=== PATIENT | male | born 1950 | race Caucasian/White ===

== ENCOUNTER 2021-07-20 17:40 | Emergency (ER) | payer OTHER ==
[~2021-07-20] VITALS: Ht 182.9 cm; Wt 113.4 kg
--- NOTE | ~2021-07-20 | EMS ---
[address] [address] EMS Patient Care Report Name: LACY NOONAN Room #: DEP ROSALIA Gonzalez#: [id number] Admission: 07/20/21 Attend Phys: Discharge: 07/20/21 Date of : 48 Report #: [id number] THIS REPORT FOR: //name// Report Transmitted: 07/23/2021 09:54 EMS Care Summary [place], [place]/[facility] Incident [phone] @ 07/20/2021 17:07 Incident Location [address] [place] [address] 27 Patient LACY NOONAN Male, 71 Years 1950 Patient Address [address] [place] [address] Patient History None Reported, Patient Allergies No known allergies, Patient Medications None Reported, Chief Complaint covid shot messed up my insides Disposition Transported No Lights/[place] Dispatch Reason Sick Person Transported To [facility] Narrative arrived to find patient meeting the ambulance stating that the covid shot two months ago messed up his insides. patient and all belongings taken to [facility] and left in room with nursing staff at bedside. [address] [address] EMS Patient Care Report Name: LACY NOONAN Room #: DEP ER Roseline.#: [id number] Admission: 07/20/21 Attend Phys: Discharge: 07/20/21 Date of : 48 Report #: [id number] Initial Vitals @17:22P: 82,R: 20,BP: 128/68,Pain: 0/10,GCS: 15,SpO2: 98,Revised Trauma: 12, @17:34P: 80,R: 20,BP: 130/70,Pain: 0/10,GCS: 15,SpO2: 98,Revised Trauma: 12, Assessments @17:22MENTAL:No Abnormalities,SKIN:No Abnormalities,HEENT:Head/Face: No Abnormalities,Eyes: No Abnormalities,Neck/Airway: No Abnormalities,LUNG SOUNDS:General: No Abnormalities,Left Upper: No Abnormalities,Right Upper: No Abnormalities,Left Lower: No Abnormalities,Right Lower: No Abnormalities,ABDOMEN:General: No Abnormalities,Left Upper: No Abnormalities,Right Upper: No Abnormalities,Left Lower: No Abnormalities,Right Lower: No Abnormalities,PELVIS//GI:No Abnormalities,EXTREMITIES:Right Leg: Edema,Left Leg: Edema,Left Arm: No Abnormalities,Right Arm: No Abnormalities,PULSE:NEURO:No Abnormalities, Impression Abdominal Pain Procedures @17:22 BLS Assessment Response: Unchanged Timeline 17:07,Call Received 17:07,Dispatch Notified 17:07,Dispatched 17:08,En Route 17:21,On Scene 17:22,At Patient 17:22,BLS Assessment,Response: Unchanged 17:22,BP: 128/68 M,PULSE: 82,RR: 20 R,SPO2: 98 Ox,ETCO2: ,BG: ,PAIN: 0,GCS: 15, 17:25,Depart Scene 17:34,BP: 130/70 M,PULSE: 80,RR: 20 R,SPO2: 98 Ox,ETCO2: ,BG: ,PAIN: 0,GCS: 15, 17:36,At Destination 17:49,Call Closed Disclaimer v1.1 Copyright 2021 [employer] This EMS Care Summary contains data elements from the applicable legal record (which may be displayed differently). It is designed to provide pertinent information for the following purposes: continuity of care, clinical quality, and state data reporting. The complete legal record is available to ED staff and administrators of the receiving hospital in [employer]'s Patient Tracker. All data is provided "as is."
[2021-07-20] MEDS ORDERED: LIPITOR40 MG PO (17:56)
[2021-07-20] MEDS ORDERED: JANTOVEN5 MG PO (18:00)
[2021-07-20] MEDS ORDERED: GLIPIZIDE 10 MG10 MG PO (18:01)
[2021-07-20] MEDS ORDERED: LEVO-T25 MCG PO (18:03)
[2021-07-20] MEDS ORDERED: CLARITIN10 M2 PO (18:04)
[2021-07-20] MEDS ORDERED: MELATONIN1 M2 PO (18:05)
[2021-07-20] MEDS ORDERED: NORVASC10 MG PO (18:05)
[2021-07-20 18:51] LABS: URINE BILIRUBIN NEGATIVE (Negative); URINE BLOOD NEGATIVE (Negative); URINE CLARITY CLEAR; URINE COLOR YELLOW; URINE GLUCOSE-RANDOM* NEGATIVE (Negative); URINE KETONES NEGATIVE (Negative); URINE LEUKOCYTES-REFLEX NEGATIVE (Negative); URINE NITRITE-REFLEX NEGATIVE (Negative); URINE PROTEIN (DIPSTICK) NEGATIVE (Negative)
[2021-07-20 18:52] LABS: ABSOLUTE NEUTROPHILS 5.3 thou/uL (1.4-8.2); BASOPHILS 1.2 % (0.0-2.0); EOSINOPHILS 2.9 % (0.0-3.0); HEMATOCRIT 41.1 % (42.0-52.0); HEMOGLOBIN 14.2 gm/dL (14.0-18.0); LYMPHOCYTES 16.5 % (24.0-44.0); MCH 31.8 pg (26.0-34.0); MCHC 34.5 g/dL (28.0-37.0); MCV 92.1 fL (80.0-100.0); MONOCYTES 13.9 % (1.0-8.0); PLATELET COUNT 328 thou/uL (150-400); POLYS 65.5 % (36.0-66.0); RBC 4.46 mil/uL (4.50-6.00); RDW 13.9 % (10.5-14.5); WBC 8.2 thou/uL (4.0-11.0)
[2021-07-20 18:59] LABS: CALCIUM 9.6 mg/dL (8.5-10.1); CREATININE 1.7 mg/dL (0.7-1.3); POTASSIUM 4.1 mmol/L (3.5-5.1)
[2021-07-20 19:10] LABS: ALBUMIN 3.9 g/dL (3.4-5.0); DIRECT BILIRUBIN 0.3 mg/dL (<0.1-0.2); TOTAL BILIRUBIN 0.8 mg/dL (0.2-1.0); TOTAL PROTEIN 8.1 g/dL (6.4-8.2)
[2021-07-20 21:14] VITALS: BP 140/63
[2021-07-20] MEDS ORDERED: CEPHALEXIN500 MG PO (21:42)
--- NOTE | 2021-07-21 11:31 | EKG ---
[address] [place] [address] ELECTROCARDIOGRAM REPORT Name: LACY NOONAN Room #: AMINA Gonzalez#: [id number] Admission: 07/20/21 Attend Phys: Discharge: 07/20/21 Date of : 48 Report #: [id number] [facility] ED Test Date: 2021-07-20 Test Time: 18:35:57 Pat Name: LACY NOONAN Department: Room: Gender: Paraprofessional Aide: PRANAV : 1950 Requested By: Dre Almaguer Order Number: [id number] MD: Rick Vela Measurements Intervals [place] Rate: 87 P: 65 MT: 165 QRS: 34 QRSD: 93 T: 67 QT: 340 QTc: 409 Interpretive Statements Sinus rhythm Probable left atrial enlargement No previous ECG available for comparison Electronically Signed On 07-21-2021 11:31:00 [facility] [facility] APPRENTICE by Rick Vela [email or web address] <ELECTRONICALLY SIGNED> By: Rick Vela MD 07/21/21 1131 [id number] 1835 Rick Vela MD /EPI
== END 2021-07-20 22:51 | disposition home or self-care (01) ==
LOC: ER 17:40
PROVIDERS: Student in an Organized Health Care Education/Training Program
DX: E86.0 Dehydration (principal); L03.116 Cellulitis of left lower limb; I10 Essential (primary) hypertension; E78.5 Hyperlipidemia, unspecified; Z79.899 Other long term (current) drug therapy